=== PATIENT | female | born 1985 | race Hispanic/Latino ===

== ENCOUNTER 2020-10-21 20:07 | Emergency (ER) | payer SELFPAY ==
--- NOTE | 2020-10-21 20:22 | Emergency Department Report ---
ED CPR HPI - General Chief Complaint: Cardiac Arrest/CPR Stated Complaint: OVERDOSE/CARDIAC ARREST Time Seen by Provider: 10/21/20 20:07 Source: EMS Mode of arrival: Stretcher Limitations: Altered Mental Status, Physical Limitation - History of Present Illness Initial Comments: Patient is a 35-year-old female that presents emergency room for cardiac arrest. Patient was found down in a [employer] bathroom. Patient was found to have pills of oxycodone around her. Patient's downtime is unknown. Patient's last known well time is unknown. CPR initiated by EMS. Report received from EMS. EMS states that the patient was found down unresponsive with no pulse and not breathing. EMS intubated the patient. EMS gave Narcan, epi x4 And shocked the patient 1 time. MD Complaint: found unresponsive -: unknown Place: other Bystander CPR Performed: No AED Applied by Bystander/[employer] Supervisor: No Shock Advised: No Initial Findings in the Field: unresponsive, no respirations, no pulse ROSC in the Field: No Associated Injuries: No Treatments Prior to Arrival: intubation, BMV, chest compressions, defribrillated shocks #, epinephrine mgs #, other (Narcan) ED Review of Systems ROS: Stated complaint: OVERDOSE/CARDIAC ARREST Other details as noted in HPI Comment: Unobtainable due to pts medical conditions ED Past Medical Hx - Past Medical History Previous Medical History?: No - Surgical History Past Surgical History?: No - Family History Family history: no significant - Social History Smoking Status: Unknown if ever smoked Substance Use Type: Other ED Physical Exam - General General appearance: other - Head Head exam: Present: atraumatic, normocephalic - Eye Eye exam: Present: other (Pupils are fixed and dilated) - ENT ENT exam: Present: mucous membranes dry - Neck Neck exam: Present: normal inspection - Respiratory Respiratory exam: Present: other (No breath sounds noted. Patient immediately extubated.) - Cardiovascular Cardiovascular Exam: Present: regular rate, normal rhythm. Absent: systolic murmur, diastolic murmur, rubs, gallop - GI/Abdominal GI/Abdominal exam: Present: soft, normal bowel sounds - Extremities Exam Extremities exam: Present: normal inspection - Back Exam Back exam: Present: normal inspection - Neurological Exam Neurological exam: Present: alert, oriented X3 - Psychiatric Psychiatric exam: Present: normal affect, normal mood - Skin Skin exam: Present: warm, dry, intact, normal color. Absent: rash ED Course - Reevaluation(s) Reevaluation #1: Initial valuation done. Patient noted to have gastric content in the ET tube and no breath sounds. Patient noted to have sounds of the epigastrium. Patient was immediately extubated and reintubated with a glide scope. See procedure note. CPR continued 10/21/20 20:05 Reevaluation #2: Resuscitation efforts terminated due to no signs of life. No cardiac motion noted. Ultrasound use. No pulse noted. Asystole on the monitor. See code note. Code was ran in accordance with ACLS guidelines. Family support will be given once they arrive. 10/21/20 20:15 Reevaluation #3: Family meeting done. Family support given. 10/21/20 22:15 ED Medical Decision Making - Medical Decision Making Patient is a 35-year-old female that presents emergency room for cardiac arrest. Patient was found down in a [employer] bathroom unresponsive and surrounded by pills and oxycodone bottles. Patient was given Narcan prior to arrival. Patient was found to be unresponsive and in asystole and no pulse. Patient had CPR initiated by EMS and patient was intubated by EMS. Patient given multiple medications in route. Upon arrival the patient was noted to have gastric content in her ET tube and sounds over the epigastrium. Patient was immediately extubated and reintubated with a glide scope. See procedure note. Multiple rounds of CPR and medications were done. Cessation efforts were terminated due to no signs of life. - Differential Diagnosis Cardiac arrest, drug overdose, PE, AL. Critical Care Time: Yes Critical care time in (mins) excluding proc time.: 35 Critical care attestation.: If time is entered above; I have spent that time in minutes in the direct care of this critically ill patient, excluding procedure time. Critical Care Time: 35 minutes ED Disposition Clinical Impression: Cardiac arrest Disposition: DC-20 Is pt being admited?: No Does the pt Need Aspirin: No Condition: Undetermined Time of Disposition: 23:50
== END 2020-10-22 01:42 ==
LOC: ED 20:07
DX: I46.9 Cardiac arrest, cause unspecified (principal)
CPT/HCPCS: 92950